=== PATIENT | female | born 1965 | race Caucasian/White ===

== ENCOUNTER 2022-03-02 15:08 | Emergency (ER) | payer OTHER, MEDICAID ==
[~2022-03-02] VITALS: Ht 160 cm; Wt 54.4 kg
[2022-03-02] MEDS ORDERED: KETOROLAC TROMETH 60MG/2ML VIAL IM ONE (16:45)
[2022-03-02 16:49] VITALS: BP 126/72
[2022-03-02] MEDS ORDERED: IBUP800T27 PO (17:20)
[2022-03-02] MEDS ORDERED: METH750T22 PO (17:20)
== END 2022-03-02 17:38 | disposition home or self-care (01) ==
LOC: ER 15:08
DX: S39.012A Strain of muscle, fascia and tendon of lower back, initial encounter (principal); E78.5 Hyperlipidemia, unspecified; R94.31 Abnormal electrocardiogram [ECG] [EKG]; Z88.0 Allergy status to penicillin; X50.0XXA Overexertion from strenuous movement or load, initial encounter; Y93.01 Activity, walking, marching and hiking; Y92.89 Other specified places as the place of occurrence of the external cause; Y99.8 Other external cause status
CPT/HCPCS: 72100; 93005; 96372; 99283; J1885